=== PATIENT | female | born 1990 | race Caucasian/White ===

== ENCOUNTER 2021-07-05 16:34 | Emergency (ER) | payer OTHER, SELFPAY ==
[2021-07-05 16:40] VITALS: BP 144/93; PULSE 121; RESP 24; TEMP 36.9; O2SAT 99
--- NOTE | 2021-07-05 16:45 | DI.CT_ITS ---
Exam(s) CT ABDOMEN PELVIS WO EXAM: CT ABDOMEN PELVIS WO CLINICAL HISTORY: RUQ pain. TECHNIQUE: Imaging Protocol: Axial computed tomography images with coronal and sagittal reformatted images were created and reviewed. COMPARISON: No exams were available for comparison FINDINGS: ABDOMEN: Lung Bases: Normal where visualized. Liver: There is fatty infiltration of the liver. No measurable mass. Gallbladder and biliary tract: No radiodense calculus or biliary ductal dilation. Pancreas: Normal density, no abnormal calcifications or inflammatory process. Spleen: Normal. Kidneys: Normal size, contour and axis.No radiodense stones or obstructive uropathy. No masses seen. Adrenal glands: No mass is seen. Lymph nodes: Within normal limits. Abdominal Aorta: Abdominal portion non-dilated. PELVIS: Bladder:Symmetric distention, no gross wall thickening. Bowel: No obstruction or bowel wall thickening. Appendix is unremarkable. Peritoneal cavity: No ascites, collection or mesenteric inflammatory response. No free air. Reproductive organs: Within normal limits. Bones: Within normal limits. Soft Tissues: Small fat containing umbilical and periumbilical hernia. IMPRESSION: No acute abdominal or pelvic process. RADIATION DOSE DELIVERED: 1,061.29mGy.cm Total DLP DATA REPOSITORY: All CT scans at this facility are submitted to the National Radiology Data Registry (NRDR) Dose Index Registry (DIR) with the [employer] ([employer]). RADIATION OPTIMIZATION: All CT scans at this facility use at least one of these dose optimization te chniques: automated exposure control; mA and/or kV adjustment per patient size (includes targeted exa ms where dose is matched to clinical indication); or iterative reconstruction.
--- NOTE | 2021-07-05 16:58 | DI.RAD_ITS ---
Exam(s) XR PORTABLE CHEST AP EXAM: XR PORTABLE CHEST AP CLINICAL HISTORY: tachycardia, RUQ pain TECHNIQUE: 2D digital imaging was performed of the chest. One image was obtained. An AP view was ob tained. COMPARISON: No exams were available for comparison FINDINGS: MEDIASTINUM: Normal. HEART: Normal. PULMONARY VASCULATURE: Normal. LUNGS: Clear. PLEURAL SPACE: No pleural effusion or pneumothorax. BONE:Within normal limits for the patient's age. OTHER FINDINGS:Normal. IMPRESSION: No acute pulmonary findings. DATA REPOSITORY: RADIATION DOSE DELIVERED:
--- NOTE | 2021-07-05 17:00 | ED.GENADUL_ITS ---
Discharge Plan Disposition Patient Disposition: HOME Condition: Improving Discharge Details Clinical Impression: Abdominal pain Primary Care Provider: [facility] Provider: Buddy Sosa Home Meds and New Rx's Prescriptions: New ondansetron HCl 4 mg tablet 4 mg PO BID PRN (Reason: nausea and vomiting) Qty: 5 0RF No Action bupropion HCl 150 mg Tablet Sustained-Release 12 Hr 150 mg PO DAILY lamotrigine 200 mg Tablet 200 mg PO DAILY citalopram [Celexa] 10 mg Tablet 10 mg PO DAILY lorazepam 0.5 mg Tablet 0.5 mg PO BID PRN drospirenone-ethinyl estradiol [FOREIGN (28)] 3-0.02 mg Tablet 1 tab PO DAILY Discharge Instructions Instructions: Abdominal Pain (ED) Additional Instructions: Please ensure that you stay hydrated consider using Gatorade or Pedialyte at home. Take medications as prescribed. Return to the emergency department if you develop any worsening symptoms. Please be seen by your primary care physician. Medical Decision Making 31-year-old female history of tubal ligation presents with right upper quadrant discomfort of the past several days, nausea no vomiting, diarrhea/soft stool, no urinary symptoms, noted to be tachycardic on arrival, holding right upper quadrant, nontender nondistended however subjective tenderness in the right upper quadrant. Consider biliary colic versus cholecystitis versus gastritis versus enteritis or colitis versus less likely pneumonia versus less likely pyelonephritis. Screening labs imaging analgesia fluids close reassessment. 19: 01 patient resting notably no acute distress no vomiting. Nonperitoneal. Labs unremarkable. CT unremarkable. Home care instructions and return precautions given. HPI General Date/Time Provider Initiated Documentation: 07/05/21 16:35 . HPI Narrative: 31-year-old female denies past medical history, endorses prior tubal ligation, presents with right upper quadrant abdominal pain over the past several days, nausea no vomiting, diarrhea over the past several days. Denies urinary sy mptoms. Last period was last month. Related Data Home Medications Medication Instructions Recorded Confirmed bupropion HCl 150 mg tablet,12 hr 150 mg PO DAILY 07/05/21 07/05/21 sustained-release citalopram 10 mg tablet (Celexa) 10 mg PO DAILY 07/05/21 07/05/21 drospirenone 3 mg-ethinyl 1 tab PO DAILY 07/05/21 07/05/21 estradiol 0.02 mg tablet (FOREIGN (28)) lamotrigine 200 mg tablet 200 mg PO DAILY 07/05/21 07/05/21 lorazepam 0.5 mg tablet 0.5 mg PO BID PRN 07/05/21 07/05/21 ondansetron HCl 4 mg tablet 4 mg PO BID PRN nausea and 07/05/21 vomiting #5 tabs Previous Rx's Medication Instructions Recorded ondansetron HCl 4 mg tablet 4 mg PO BID PRN nausea and 07/05/21 vomiting #5 tabs Allergies Allergy/AdvReac Type Severity Reaction Status Date / Time No Known Allergies Allergy Unverified 07/05/21 16:47 General Stated Complaint: Abd Prob CARLOS ALBERTO: 3 Review of Systems Narrative: Review of Systems Constitutional: negative Eyes: negative ENT: negative Cardiovascular: negative Respiratory: negative Gastrointestinal: Abdominal pain nausea diarrhea : negative Musculoskeletal: negative Skin: negative Neurologic: negative Psych: negative PFSH All Active Problems (Updated 07/05/21 @ 19:04 by Buddy Sosa MD) Abdominal pain (Acute) Social History Smoking/Tobacco Use Status: Current every day Tobacco Type: cigarettes Smoking risk assessment performed?: Yes Alcohol Intake: never Drug use: Daily Substance use type: marijuana Exam Narrative Exam Narrative: Physical Examination General: alert, awake, cooperative, appears mildly uncomfortable HEENT: normocephalic, atraumatic; PERRL, EOM intact, conjunctiva normal; no nasal discharge; moist mucous membranes, oral and pharyngeal mucosa normal, tolerating secretions Neck: supple, trachea midline; full ROM Chest: normal to inspection Respiratory: normal respiratory effort, speaking in full sentences, clear to auscultation, no wheezing, rales or rhonchi Cardiac: Tachycardia, regular rhythm, S1S2 intact, no murmurs rubs or gallops GI: abdomen soft, non-tender, non-distended; no palpable mass or hepatosplenomegaly; subjective discomfort in right upper quadrant Skin: no lesions, rashes or trauma appreciated Neuro: AAOx3, normal speech, moving all extremities Psych: Appropriate mood and affect Course Vital Signs Vital signs: Vital Signs Temperature 36.9 C 07/05/21 16:40 Pulse 121 H 07/05/21 16:40 Respiratory Rate 24 07/05/21 16:40 Blood Pressure 144/93 H 07/05/21 16:40 Pulse Oximetry 99 07/05/21 16:40 Temperature 36.9 C 07/05/21 16:40 Temperature Source Temporal Artery Scan 07/05/21 16:40 Pulse 121 H 07/05/21 16:40 Respiratory Rate 24 07/05/21 16:40 Respiratory Effort 07/05/21 16:40 Blood Pressure 144/93 H 07/05/21 16:40 Blood Pressure Position Sitting 07/05/21 16:40 Pulse Oximetry 99 07/05/21 16:40 Oxygen Delivery Method Room Air 07/05/21 16:40 Oxygen Flow Rate 0 07/05/21 16:40 Pain Level 7 07/05/21 16:40
[2021-07-05 17:28] LABS: Abs Immature Grans 0.01 10^3/uL (0.0-0.06); Absolute Basophil Count 0.04 10^3/uL (0.0-0.2); Absolute Eosinophil Count 0.06 10^3/uL (0.0-0.7); Absolute Lymphocyte Count 2.01 10^3/uL (1.2-3.4); Absolute Monocyte Count 0.72 10^3/uL (0.1-0.8); Absolute Neutrophil Count 3.84 10^3/uL (1.2-6.7); Basophils % 0.6; Eosinophils % 0.9; HCT 39.7 % (36.0-46.0); HGB 13.8 g/dL (11.2-15.7); Immature Grans % 0.1; Lymphocytes % 30.1; MCH 30.3 pg (27.0-33.0); MCHC 34.8 % (32.0-36.0); MCV 87 fL (80-95); MPV 11.8 fL (8.0-11.0); Monocytes % 10.8; Neutrophils % 57.5; Platelet Count 290 10^3/uL (130-400); RBC 4.56 10^6/uL (3.93-5.22); RDW-SD 38.5 fL; WBC 6.68 10^3/uL (4.4-10.8)
[2021-07-05 17:35] LABS: Bilirubin Negative (Negative); Blood Trace-intact (Negative); Clarity Clear (Clear); Glucose Negative (Negative); Ketones Negative (Negative); Leukocyte Esterase Negative (Negative); Nitrite Negative (Negative); Urobilinogen 0.2 EU/dL (Up TO 0.2); pH 6.5 (5-8)
[2021-07-05 17:43] LABS: ALT 25 U/L (14-59); AST 21 U/L (15-37); Albumin 3.5 g/dL (3.4-5.0); Alkaline Phosphatase 101 U/L (46-116); Anion Gap 10.8 mmol/L (3-11); BUN 11 mg/dL (7-18); Bilirubin, Total 0.2 mg/dL (0.2-1.0); CO2 20.2 mmol/L (21.0-32.0); CREATININE 1.1 mg/dL (0.55-1.02); Calcium 8.8 mg/dL (8.5-10.1); Chloride 107 mmol/L (98-107); Glucose 110 mg/dL (74-106); Lipase 108 U/L (73-393); Potassium 3.2 mmol/L (3.5-5.1); Sodium 138 mmol/L (136-145); Total Protein 7.7 g/dL (6.4-8.2)
[2021-07-05 17:44] LABS: Bacteria Few HPF (Negative); C & S Indicated? No/Sq. Contamination; Casts Negative LPF (Negative); Crystals Negative HPF (Negative); Epithelial Cells Moderate HPF (Negative); Mucus Negative (Negative)
--- NOTE | 2021-07-05 18:35 | DI.VRAD_ITS ---
PROCEDURE INFORMATION: Exam: CT Abdomen And Pelvis Without Contrast Exam date and time: 07/05/2021 17:35 Age: 31 years old Clinical indication: Patient HX: Ruq pain. Contingency protocol- no contrast TECHNIQUE: Imaging protocol: Computed tomography of the abdomen and pelvis without contrast. Radiation optimization: All CT scans at this facility use at least one of these dose optimization techniques: automated exposure control; mA and/or kV adjustment per patient size (includes targeted exams where dose is matched to clinical indication); or iterative reconstruction. COMPARISON: No relevant prior studies available. FINDINGS: Liver: Focal fat in the liver near the fissure for the ligamentum teres. No hepatic masses on noncontrast imaging. Gallbladder and bile ducts: No calcified stones. No ductal dilation. Pancreas: No gross pathology in the pancreas on noncontrast imaging. Spleen: No splenomegaly or focal lesions. Adrenal glands: No mass. Kidneys and ureters: No nephrolithiasis or collecting system obstruction. Stomach and bowel: No gross pathology in the small bowel on noncontrast imaging. No colitis or diverticular disease. Appendix: No evidence of appendicitis. Intraperitoneal space: No free air. No significant fluid collection. Vasculature: No abdominal aortic aneurysm. Lymph nodes: No significantly enlarged lymph nodes. Urinary bladder: Unremarkable as visualized. Reproductive: Unremarkable as visualized. Bones/joints: No acute fracture. Soft tissues: Tiny umbilical and periumbilical hernias containing fat. IMPRESSION: No acute findings on noncontrast imaging. Acute. Dictated and Authenticated by: Kimberly Bernal MD. Ordering:ISABEL Goodwin MD
--- NOTE | 2021-07-05 18:35 | DI.VRAD_ITS ---
PROCEDURE INFORMATION: Exam: XR Chest Exam date and time: 07/05/2021 18:04 Age: 31 years old Clinical indication: Other: Tachycardia, ruq pain TECHNIQUE: Imaging protocol: XR of the chest. Views: 1 view. COMPARISON: CT ABDOMEN PELVIS WO 07/05/2021 17:35 FINDINGS: Lungs: No consolidation. Pleural spaces: No pleural effusion. No pneumothorax. Heart/Mediastinum: No cardiomegaly. Bones/joints: No acute fracture. IMPRESSION: Negative portable chest. Dictated and Authenticated by: Kimberly Bernal MD. Ordering:ISABEL Goodwin MD
[2021-07-05 19:13] VITALS: BP 116/67; PULSE 83; RESP 18; O2SAT 99
[2021-07-07 11:45] LABS: COVID-19 RT-PCR UVMMC Result Negative (Negative)
== END 2021-07-05 19:14 | disposition home or self-care (01) ==
PROVIDERS: Emergency Provider Emergency Medicine
DX: R10.11 Right upper quadrant pain (principal); R00.0 Tachycardia, unspecified; Z20.822 Contact with and (suspected) exposure to COVID-19
CPT/HCPCS: 80053; 81025; 83690; 99283; 99284; U0003; 71045; 74176; 81003; 81015; 85025